=== PATIENT | female | born 1955 | race African-American/Black ===

== ENCOUNTER 2023-07-11 11:22 | Emergency (ER) | payer OTHER, MEDICAID, SELFPAY ==
[2023-07-11 11:42] VITALS: BP 138/79; PULSE 83; RESP 18; TEMP 36.6; O2SAT 100; BMI 27.3
[2023-07-11 11:48] VITALS: BMI 27.3
--- NOTE | 2023-07-11 14:45 | ED.HA ---
HPI - Headache <Gage Smith PA-C - Last Filed: 07/11/23 16:42> General Chief Complaint: Headache Stated Complaint: headache, neck pain Time Seen by Provider: 07/11/23 14:03 Mode of arrival: Ambulatory History of Present Illness HPI Narrative: This is a 67-year-old female presents emergency department due to a posterior headache for the last 3 days. She also states that she feels like ?things are moving around? the back of her head. She denies any dizziness, slurred speech. States that she had a ?stroke? approximately 6 months ago and treated at [facility]. She states that she does not take a blood thinner only 1 baby aspirin. She denies any new weakness but states that her left arm is ?floppy? from her previous stroke. She denies any chest pain, shortness of breath, URI symptoms, or any other concerning signs or symptoms. Related Data Previous Rx's Medication Instructions Recorded cyclobenzaprine 10 mg tablet 10 mg PO BEDTIME PRN muscle spasm 07/11/23 #14 tabs Allergies Allergy/AdvReac Type Severity Reaction Status Date / Time No Known Drug Allergies Allergy Verified 07/11/23 11:47 Review of Systems <Gage Smith PA-C - Last Filed: 07/11/23 16:42> Review of Systems Narrative: GENERAL: Denies chills, fatigue, malaise, fever, sweats. HEENT: Reports headache, Denies sinus pain, ear pain, sore throat, difficulty swallowing, dizziness. RESPIRATORY: Denies dyspnea, cough, wheezing, hemoptysis, sputum. CARDIOVASCULAR: Denies chest pain, palpitations, orthopnea, edema, GASTROINTESTINAL: Denies nausea, vomiting, abdominal pain, diarrhea, constipation, melena. : Denies dysuria, frequency, incontinence, hematuria, urinary retention. MUSCULOSKELETAL: denies weakness, joint pain, or bony pain SKIN: Denies rash, skin lesions, or other NEUROLOGIC: Denies weakness, headache, numbness, change in speech, confusion, seizures, incoordination. PSYCHIATRIC: No concerning psychosocial issues. 12 point review of systems is negative except for those stated above Patient History <Gage Smith PA-C - Last Filed: 07/11/23 16:42> Social History Smoking Status: Current some day smoker Smoking Status: Current some day smoker alcohol intake frequency: a few times a month Substance Use Type: does not use Exam <KARRIE Go Last Filed: 07/11/23 16:42> Narrative Exam Narrative: GENERAL: Well-developed patient, in mild distress. HEAD: Atraumatic. Normocephalic. EYES: Pupils equal round and reactive. Extraocular motions intact. No scleral icterus. No injection or drainage. ENT: Nose without bleeding, purulent drainage. Throat without erythema, tonsillar hypertrophy or exudate. Airway patent. NECK: Trachea midline. Non tender EXTREMITIES: No edema or joint tenderness. NEURO: AOx3. Cranial nerves 2-12 intact SKIN: No rash or erythema of visible areas CARDIOVASCULAR: Regular rate and rhythm without murmurs, gallops, or rubs. RESPIRATORY: Clear to auscultation. Breath sounds equal bilaterally. No wheezes, rales, or rhonchi. GASTROINTESTINAL: Abdomen soft, non-tender, nondistended. BACK: Nontender without deformity or crepitance. No flank tenderness. Initial Vital Signs Initial Vital Signs: Vital Signs Temperature 98 F 07/11/23 11:42 Pulse Rate 83 07/11/23 11:42 Respiratory Rate 18 07/11/23 11:42 Blood Pressure 138/79 07/11/23 11:42 Pulse Oximetry 100 07/11/23 11:42 Oxygen Delivery Method Room Air 07/11/23 11:42 <Aaron Colby DO - Last Filed: 07/11/23 16:58> Initial Vital Signs Initial Vital Signs: Vital Signs Temperature 98 F 07/11/23 11:42 Pulse Rate 83 07/11/23 11:42 Respiratory Rate 18 07/11/23 11:42 Blood Pressure 138/79 07/11/23 11:42 Pulse Oximetry 100 07/11/23 11:42 Oxygen Delivery Method Room Air 07/11/23 11:42 Course <Gage Smith PA-C - Last Filed: 07/11/23 16:42> Orders Ordered: ED Orders 07/11/23 14:54 CT head/brain wo con Stat Discontinued Medications Ketorolac Tromethamine (Ketorolac 30 Mg/Ml Vial) 15 mg IM NOW ONE Stop: 07/11/23 15:48 Last Admin: 07/11/23 16:14 Dose: 15 mg Documented By: RLS Vital Signs Vital signs: Vital Signs - 8 hr 07/11/23 11:42 Temperature 98 F Pulse Rate 83 Respiratory Rate 18 Blood Pressure 138/79 Pulse Oximetry 100 Oxygen Delivery Method Room Air <Aaron Colby DO - Last Filed: 07/11/23 16:58> Orders Ordered: ED Orders 07/11/23 14:54 CT head/brain wo con Stat Discontinued Medications Ketorolac Tromethamine (Ketorolac 30 Mg/Ml Vial) 15 mg IM NOW ONE Stop: 07/11/23 15:48 Last Admin: 07/11/23 16:14 Dose: 15 mg Documented By: RLS Vital Signs Vital signs: Vital Signs - 8 hr 07/11/23 11:42 Temperature 98 F Pulse Rate 83 Respiratory Rate 18 Blood Pressure 138/79 Pulse Oximetry 100 Oxygen Delivery Method Room Air MDM - Headache <Gage Smith PA-C - Last Filed: 07/11/23 16:42> Imaging Data CT scan - head: Radiologist's Impression: [place] [address] CT Scan Report Signed Patient: Felicitas Merritt MR#: [id number] : 1955 Acct:[id number] Age/Sex: 67 / F Date of Service: 07/11/23 Loc: ED Accession Number: [id number] Procedure: CT head/brain wo con Ordering Provider: Gage Smith P.A-C PROCEDURE: CT HEAD/BRAIN WO CON INDICATIONS: Headache, hx of stroke 6 months ago TECHNIQUE: Noncontrast 4.5 mm thick angled axial sections acquired from the foramen magnum to the vertex, with coronal and sagittal reformats. For radiation dose reduction, the following was used: automated exposure control, adjustment of mA and/or kV according to patient size. COMPARISON: None. FINDINGS: Image quality: Diagnostic. CSF spaces: Basal cisterns are patent. No extra-axial fluid collections. The ventricles are symmetric in size and shape. Brain: No intracranial bleeds or masses. There is cerebral volume loss for age, with resultant ventricular and sulcal prominence. There are periventricular and deep white matter chronic small vessel ischemic changes. Scattered areas of lacunar infarction can be seen, which are worst involving the right basal ganglia. There is intracranial internal carotid artery atherosclerosis. Skull and face: Calvarium and visualized facial bones appear intact, without suspicious lesions. Incidental note is made of hyperostosis frontalis. This is not considered to be pathologic in a woman of this age. Sinuses: Visualized sinuses and mastoids are clear. IMPRESSION: Unremarkable intracranial study, without an imaging explanation found for the patient's presenting history of headache. No acute intracranial process is seen. Scattered foci of lacunar infarctions can be seen, which are worst involving the right basal ganglia. To the limits of this noncontrast study, no findings masses or mass effect can be seen. Dictated by: Rakan Keyes M.D. on 07/11/2023 at 14:28 Approved by: Rakan Keyes M.D. on 07/11/2023 at 14:29 [facility] Narrative Medical decision making narrative: ED course: This is a 67-year-old female presents emergency department due to 3 days of a suspected tension headache. She states she is having some pain to her posterior neck that radiates to the back of her head. She does not describe any new neuro changes. She did had a history of a stroke from 6 months ago seen at [facility]. Head CT today showed no new changes. Patient does not describe having any neuro changes in her physical exam was very reassuring. Suspect benign headache. Toradol given and cyclobenzaprine prescribed. CC: Headache Complicating co-morbidities: Reported history of stroke Data collected from: Previous notes Medical records reviewed: Patient was not been to this emergency department in the past. Differential considered, but not limited to: Acute CVA, migraine, tension headache Exam documented above, pertinent findings include: Reassuring neuro exam Lab Test results independently reviewed as above. Pertinent findings: None obtained Imaging studies independently reviewed: CT showed no new findings Scores Used: None MIPS Elements: None Consultations: None Treatments: Toradol IM Re-evaluations: None Discussion: Discussed plan with the patient was comfortable with the plan Diagnosis: Tension headache Disposition: see below, along with detailed discharge instructions that have been reviewed with patient as well as indications for ED re-evaluation and additional outpatient follow up Discharge Plan Departure Patient Disposition: Home Clinical Impression: Headache Instructions: DI for Headache Activity Restrictions/Additional Instructions: Thank you for coming to the [facility] Emergency Department today. As we discussed the head CT showed no new changes and no concerning findings in your brain. I suspect this is a benign headache which maybe due to the increased exercise you have been doing. Please take the cyclobenzaprine to help relax her muscles before bed. You may use Tylenol and ibuprofen as well. I sent the medication to [facility] in [place]. Please return to the emergency department if you develop any slurred speech, significant weakness, or any other concerning signs or symptoms. I hope you feel better soon. Please follow up with your primary care provider within a week if your symptoms continue. If you do not have a primary care provider please contact the [facility] Resource line at [phone]. They will ask some questions about your medical history and help you get set up with a provider in the community. Prescriptions: New cyclobenzaprine 10 mg tablet 10 mg PO BEDTIME PRN (Reason: muscle spasm) Qty: 14 0RF Stand Alone Forms: Patient Portal/API ED Sign-out <Aaron Colby, DO - Last Filed: 07/11/23 16:58> [facility] Dr Colby Co-Sign Statement: I was available for consultation during this patient's emergency department visit. This chart is signed by myself for administrative purposes only. I did not have direct contact with this patient during this visit. They were seen independently by the APC.
--- NOTE | 2023-07-11 14:54 | DI.CT.S_ITS ---
PROCEDURE: CT HEAD/BRAIN WO CON INDICATIONS: Headache, hx of stroke 6 months ago TECHNIQUE: Noncontrast 4.5 mm thick angled axial sections acquired from the foramen magnum to the vertex, with coronal and sagittal reformats. For radiation dose reduction, the following was used: automated exposure control, adjustment of mA and/or kV according to patient size. COMPARISON: None. FINDINGS: Image quality: Diagnostic. CSF spaces: Basal cisterns are patent. No extra-axial fluid collections. The ventricles are symmetric in size and shape. Brain: No intracranial bleeds or masses. There is cerebral volume loss for age, with resultant ventricular and sulcal prominence. There are periventricular and deep white matter chronic small vessel ischemic changes. Scattered areas of lacunar infarction can be seen, which are worst involving the right basal ganglia. There is intracranial internal carotid artery atherosclerosis. Skull and face: Calvarium and visualized facial bones appear intact, without suspicious lesions. Incidental note is made of hyperostosis frontalis. This is not considered to be pathologic in a woman of this age. Sinuses: Visualized sinuses and mastoids are clear. IMPRESSION: Unremarkable intracranial study, without an imaging explanation found for the patient's presenting history of headache. No acute intracranial process is seen. Scattered foci of lacunar infarctions can be seen, which are worst involving the right basal ganglia. To the limits of this noncontrast study, no findings masses or mass effect can be seen. Dictated by: Rakan Keyes M.D. on 07/11/2023 at 14:28 Approved by: Rakan Keyes M.D. on 07/11/2023 at 14:29
[2023-07-11] MEDS: KETOROLAC 30 MG/ML VIAL 15 MG IM (16:14)
[2023-07-11 16:58] VITALS: BP 137/63; PULSE 80; RESP 16; O2SAT 98
== END 2023-07-11 16:59 | disposition home or self-care (01) ==
PROVIDERS: Emergency Provider Physician Assistant Medical
DX: R51.9 Headache, unspecified (principal); Z79.82 Long term (current) use of aspirin
CPT/HCPCS: 70450; 96372; 99284; J1885